=== PATIENT | male | born 1950 | race Caucasian/White ===

== ENCOUNTER → 2018-01-23 | Outpatient (CLI) | payer OTHER | LOC: BMCIMAGING 07:24 | PROVIDERS: ATTEND Physician Assistant | DX: I70.0 Atherosclerosis of aorta (principal); I77.9 Disorder of arteries and arterioles, unspecified; I25.10 Atherosclerotic heart disease of native coronary artery without angina pectoris; F17.200 Nicotine dependence, unspecified, uncomplicated ==

== ENCOUNTER 2018-07-02 05:59 | Day surgery (SDC) | payer OTHER ==
[2018-07-02] MEDS ORDERED: ceFAZolin 2 GM/DEXTROSE 100 ML IV ONE (06:08)
[2018-07-02] MEDS ORDERED: LR 1,000 ML IV ONE (06:52)
[2018-07-02] MEDS ORDERED: BUPIVACAINE 0.5% 30 ML SDV ONE (06:59)
[2018-07-02] MEDS ORDERED: ceFAZolin 1 GM/5 ML SYR ONE (07:00)
[2018-07-02] MEDS ORDERED: LIDOCAINE 1% 300 MG/30 ML SDV ONE (07:01)
--- NOTE | 2018-07-02 07:01 | PDHPUP ---
History & Physical Update H&P update statement: This history and physical update is based on an assessment of the patient which was completed after admission or registration (within 24 hours), but prior to the surgery/procedure. H&P update: H&P reviewed & patient examined
[2018-07-02] MEDS ORDERED: MIDAZOLAM 2 MG/2 ML VIAL ONE (07:15)
[2018-07-02] MEDS ORDERED: PROPOFOL/EMULSION 500 MG/50 ML BOTTLE IV ONE (07:16)
[2018-07-02] MEDS ORDERED: fentaNYL 100 MCG/2 ML INJ ONE (07:16)
--- NOTE | 2018-07-02 07:55 | PDANEPAE ---
ANE Past Medical History - Cardiovascular History Hx Hypertension: No Hx Arrhythmias: No Hx Chest Pain: No Hx Coronary Artery / Peripheral Vascular Disease: Yes Hx CHF / Valvular Disease: No Hx Palpitations: No Cardiovascular History Comment: hyperlipidemia. cad - Pulmonary History Hx COPD: No Hx Asthma/Reactive Airway Disease: No Hx Recent Upper Respiratory Infection: No Hx Oxygen in Use at Home: No Hx Sleep Apnea: No Sleep Apnea Screening Result - Last Documented: Negative - Neurologic History Hx Cerebrovascular Accident: No Hx Seizures: Yes Hx Dementia: No Neurologic History Comment: hx of seizures at 26 yo - Endocrine History Hx Diabetes: No - Renal History Hx Renal Disorders: No Renal History Comment: BLADDER BECOMES A ISSUES WHEN BACK IS FLARING UP. - Liver History Hx Hepatic Disorders: No - Neurological & Psychiatric Hx Hx Neurological and Psychiatric Disorders: No - Cancer History Hx Cancer: No - Congenital Disorder History Hx Congenital Disorders: No - GI History Hx Gastrointestinal Disorders: No - Other Health History Other Health History: wears reading glasses - Chronic Pain History Chronic Pain: Yes (bilateral knees, right shoulder, lower back) - Surgical History Prior Surgeries: 10/23/16 l3-4 lami and decompression with Rajpal. TONSILLECTOMY ANE Review of Systems Review of Systems: - Exercise capacity METS (RN): 4 METS ANE Patient History - Allergies Allergies/Adverse Reactions: simvastatin Allergy (Verified 07/02/18 06:37) Other-Enter Comments - Home Medications Home Medications: Dilantin 10/04/16 [Last Taken 07/01/18] Crestor 06/05/18 [Last Taken 06/28/18] Herbals/Supplements -Info Only 06/05/18 [Last Taken 06/28/18] - NPO status NPO Since - Liquids (Date): 07/02/18 NPO Since - Liquids (Time): 06:00 NPO Since - Solids (Date): 07/01/18 NPO Since - Solids (Time): 21:30 - Smoking Hx Smoking Status: Heavy smoker - Family Anes Hx Family Hx Anesthesia Complications: none ANE Labs/Vital Signs - Vital Signs Blood Pressure: 115/79 Heart Rate: 75 Respiratory Rate: 15 O2 Sat (%): 93 Height: 170.18 cm Weight: 83.007 kg ANE Physical Exam - Airway Mallampati Score: Class 2 - ASA Status ASA Status: II ANE Anesthesia Plan Total IV Anesthesia: Yes Urgent/Emergent Case: Luis Angel holley completed preop but documented later for safe timely pt care
[2018-07-02] MEDS ORDERED: ONDANSETRON 4 MG/2 ML VIAL IVP PRN (08:09)
[2018-07-02] MEDS ORDERED: LR 500 ML IV PRN (08:09)
[2018-07-02] MEDS ORDERED: NALOXONE HCL 0.4 MG/ML INJ IVP PRN (08:09)
[2018-07-02] MEDS ORDERED: fentaNYL 100 MCG/2 ML INJ IVP PRN (08:09)
--- NOTE | 2018-07-02 08:10 | POSTANESTH ---
Post Anesthetic Evaluation Cardiovascular Status: Normal, Stable Respiratory Status: Normal, Stable Level of Consciousness/Mental Status: Can Participate in Eval Pain Control: Adequate, Prn Tx Ordered Nausea/Vomiting Control: Adequate, Prn Tx Ordered Complications Possibly Related to Anesthesia: None Noted
[2018-07-02] MEDS ORDERED: OXYCODONE/APAP 5/325 TAB PO PRN (08:15)
--- NOTE | 2018-07-02 08:15 | POSTOPPROG ---
Post Op Note Date of Operation: 07/02/18 Surgeon: Shashi Scott Bench Mover: none Anesthesiologist: Jose Beckman MD Anesthesia: IV Sedation Pre-op Diagnosis: Exostosis, right first metatarsal Post-op Diagnosis: loose body, right first MTP Indication: pain Procedure: 1. cheilectomy, right first metatarsal 2. removal loose body, 1st MTP , righ Findings: significant cartilage loss dorsal 50% of 1st met head Inf/Abcess present in the surg proc area at time of surgery?: No Depth: Organ Space EBL: Minimal Total fluids administered: per anesth Complications: none
--- NOTE | 2018-07-02 09:49 | GOP ---
[f rep st] OPERATIVE REPORT DATE OF OPERATION: 07/02/2018 SURGEON: Shashi Scott DPM GLASS LOADING EQUIPMENT TENDER: None. ANESTHESIA: Local with monitored anesthesia care. PREOPERATIVE DIAGNOSIS: 1. Hallux rigidus, right foot. 2. Loose body 1st metatarsophalangeal joint, right foot. POSTOPERATIVE DIAGNOSIS: 1. Hallux rigidus, right foot. 2. Loose body 1st metatarsophalangeal joint, right foot. PROCEDURE PERFORMED: 1. Cheilectomy, 1st metatarsal, right foot. 2. Excision, removal of loose body 1st metatarsophalangeal joint, right foot. FINDINGS: ESTIMATED BLOOD LOSS: Scant. DESCRIPTION OF PROCEDURE: Under mild sedation, the patient was brought to the operating room, placed on the operating table in supine position. Following further IV sedation as well as infiltration of 2 g of IV Ancef the forefoot was blocked in a regional local anesthetic with 20 cc of 0.5% Marcaine plain. The foot was then scrubbed, prepped, and draped in the usual aseptic manner. An Esmarch band age was utilized to exsanguinate the patient's right foot and the tourniquet was inflated to 265 mmHg . Attention was then directed to the dorsal aspect of the patient's 1st metatarsophalangeal joint of the right foot where a 4 cm linear longitudinal incision was made in line and medial to the tendon o f extensor hallucis longus. The skin was deepened via sharp and blunt dissection care being taken to identify and retract all vital neural and vascular structures. All bleeders were ligated and cauter ized as necessary. The periosteal capsular incision was made in line with the skin incision. The st ructures were reflected medially and laterally thus exposing the head of the 1st metatarsal and base of the proximal phalanx of the right foot. At this time, the loose body was immediately identified a nd was the great majority of the dorsal base of the proximal phalanx of the right hallux. There did appear to be some chalky white substance within the capsule and synovial tissue indicative of a gouty type arthropathy. Dorsal and medial eminence of the 1st metatarsal were then removed with a sagitta l saw. A rongeur was used along with a barrel type bur to round off any sharp edges. The wound was flushed with copious amounts of sterile normal saline. The 2 cm x 3 cm AmnioFix amniotic tissue memb oscar was placed on top of the joint. The capsular tissue was closed over this with a 2-0 Vicryl. Th e subcutaneous tissues were closed with 3-0 Monocryl and the skin was closed with a running baseball- type suture of 4-0 Prolene. The wound was dressed with Xeroform and a sterile compressive dressing c onsisting of 4x4s and Sofia. An Maulik wrap was also applied. The tourniquet was dropped to 25 minutes and a prompt hyperemic response was noted to all digits of the right foot. The patient tolerated th e procedure and anesthesia well. He was transferred to the recovery room with vital signs stable, va scular status intact to all digits of the right foot. Following pre and postoperative monitoring, sam chambers will be discharged home with the following written and oral postop instructions. 1. Keep dressing clean, dry, intact. 2. Use boot at all times when ambulating. 3. Use caution while taking pain medication. 4. All followup questions and concerns should be directed toward [facility] at [phone]. PATHOLOGY: None. HEMOSTASIS: Pneumatic ankle tourniquet at 265 mmHg for 25 minutes. MATERIALS: I used a 2 cm x 3 cm AmnioFix amniotic tissue graft from [employer]. INJECTABLES: 20 cc of 0.5% Marcaine plain. COMPLICATIONS: None. INDICATIONS FOR PROCEDURE: The patient is an otherwise healthy 67-year-old gentleman who presented t o my office some year ago with right big toe joint pain. Initial x-rays were taken and a large osteo phyte was noticed on the dorsal aspect of the patient's 1st metatarsal of the right foot as well as a t the base of the proximal phalanx, right hallux. There was suspicion that there was a loose body wi thin the joint. The patient was given the risks, benefits, and alternatives to the procedure propose d and wishes to proceed with the procedure. Procedure in detail is as follows. /[id number]/MODL
[2018-07-02 10:20] VITALS: BP 118/76
== END 2018-07-02 10:13 | disposition home or self-care (01) ==
LOC: FSGY 05:59
PROVIDERS: ATTEND Podiatrist Foot & Ankle Surgery
PROC: 0SNM0ZZ Release Right Metatarsal-Phalangeal Joint, Open Approach (ICD-10-PCS; principal; 2018-07-02 07:15)
PROC: 0QBN0ZZ Excision of Right Metatarsal, Open Approach (ICD-10-PCS; principal; 2018-07-02 07:15)
DX: M20.21 Hallux rigidus, right foot (principal); M24.074 Loose body in right toe joint(s)
CPT/HCPCS: C9399; J0690; J2250; J2704; J3010

== ENCOUNTER → 2018-11-09 | Outpatient (CLI) | payer OTHER | LOC: BMCIMAGING 08:10 | PROVIDERS: ATTEND Physician Assistant | DX: R91.8 Other nonspecific abnormal finding of lung field (principal) ==

== ENCOUNTER → 2018-12-27 | Outpatient (CLI) | payer OTHER ==
[~2018-12-27] MED LIST: IOPAMIDOL (ISOVUE-300) 100 ML BTL ONE
== END ==
LOC: FIMAGING 14:21
PROVIDERS: ATTEND Physician Assistant
DX: R91.8 Other nonspecific abnormal finding of lung field (principal); R91.1 Solitary pulmonary nodule; Z87.891 Personal history of nicotine dependence
CPT/HCPCS: 71260; Q9967; 82565-PO

== ENCOUNTER → 2019-02-06 | Day surgery (SDC) | payer OTHER ==
[~2019-02-06] MED LIST changes: +ALTEPLASE 2 MG VIAL IVP PRN; +FLUMAZENIL 0.5 MG/5 ML MDV IVP ONE; +FLUMAZENIL 0.5 MG/5 ML MDV IVP PRN; +FUROSEMIDE 20 MG/2 ML VIAL ONE; +GLUCAGON HCL 1 MG VIAL IVP PRN; +HEPARIN 10,000 UNIT/10 ML MDV (1,000 UNIT/ML) IVP PRN; -IOPAMIDOL (ISOVUE-300) 100 ML BTL ONE; +LIDOCAINE 1% 300 MG/30 ML SDV ONE; +MEPERIDINE 25 MG/ML SYR IVP PRN; +MIDAZOLAM 2 MG/2 ML VIAL IVP PRN; +MIDAZOLAM 2 MG/2 ML VIAL ONE; +NALOXONE HCL 0.4 MG/ML INJ IVP PRN; +NALOXONE HCL 0.4 MG/ML INJ ONE; +NS 1,000 ML IV SCH; +ONDANSETRON 4 MG/2 ML VIAL IVP PRN; +PROTAMINE SULFATE 50 MG/5 ML VIAL IVP PRN; +fentaNYL 100 MCG/2 ML INJ IVP PRN; +fentaNYL 100 MCG/2 ML INJ ONE; +oxyCODONE IR 5 MG TAB PO ONE
[2019-02-06 11:02] LABS: PROTIME(PATIENT) 12.8 SEC (12.0-15.0)
[2019-02-06 16:14] VITALS: BP 117/71
== END | disposition home or self-care (01) ==
LOC: FIMAGING 10:05
PROVIDERS: ATTEND Internal Medicine Hematology & Oncology
PROC: 0BBG3ZX Excision of Left Upper Lung Lobe, Percutaneous Approach, Diagnostic (ICD-10-PCS; principal; 2019-02-06 12:30)
DX: C34.12 Malignant neoplasm of upper lobe, left bronchus or lung (principal)
CPT/HCPCS: J1940; J2250; J2310; J3010

== ENCOUNTER → 2019-02-19 | Outpatient (CLI) | payer OTHER ==
[~2019-02-19] MED LIST changes: -ALTEPLASE 2 MG VIAL IVP PRN; -FLUMAZENIL 0.5 MG/5 ML MDV IVP ONE; -FLUMAZENIL 0.5 MG/5 ML MDV IVP PRN; -FUROSEMIDE 20 MG/2 ML VIAL ONE; +GADOBUTROL 10 ML VIAL IVP ONE; -GLUCAGON HCL 1 MG VIAL IVP PRN; -HEPARIN 10,000 UNIT/10 ML MDV (1,000 UNIT/ML) IVP PRN; -LIDOCAINE 1% 300 MG/30 ML SDV ONE; -MEPERIDINE 25 MG/ML SYR IVP PRN; -MIDAZOLAM 2 MG/2 ML VIAL IVP PRN; -MIDAZOLAM 2 MG/2 ML VIAL ONE; -NALOXONE HCL 0.4 MG/ML INJ IVP PRN; -NALOXONE HCL 0.4 MG/ML INJ ONE; -NS 1,000 ML IV SCH; -ONDANSETRON 4 MG/2 ML VIAL IVP PRN; -PROTAMINE SULFATE 50 MG/5 ML VIAL IVP PRN; -fentaNYL 100 MCG/2 ML INJ IVP PRN; -fentaNYL 100 MCG/2 ML INJ ONE; -oxyCODONE IR 5 MG TAB PO ONE
== END ==
LOC: FIMAGING 06:26
PROVIDERS: ATTEND Surgery
DX: C34.12 Malignant neoplasm of upper lobe, left bronchus or lung (principal); R90.82 White matter disease, unspecified; F17.200 Nicotine dependence, unspecified, uncomplicated
CPT/HCPCS: 70553; A9585

== ENCOUNTER 2019-03-15 07:34 | Inpatient (IN) | payer OTHER ==
[2019-03-15] MEDS ORDERED: ceFAZolin 2 GM/DEXTROSE 100 ML IV ONE (07:43)
[2019-03-15] MEDS ORDERED: LR 1,000 ML IV ONE (07:43)
[2019-03-15] MEDS ORDERED: oxyCODONE IR 5 MG TAB PO PRN (08:40)
[2019-03-15] MEDS ORDERED: ALBUTEROL 3 ML DEYVIAL IH PRN (08:40)
[2019-03-15] MEDS ORDERED: PROMETHAZINE HCL 25 MG/ML INJ IVP PRN (08:40)
[2019-03-15] MEDS ORDERED: NALOXONE HCL 0.4 MG/ML INJ IVP PRN (08:40)
[2019-03-15] MEDS ORDERED: ONDANSETRON 4 MG/2 ML VIAL IVP PRN (08:40)
[2019-03-15] MEDS ORDERED: LR 500 ML IV PRN (08:40)
[2019-03-15] MEDS ORDERED: MIDAZOLAM 2 MG/2 ML VIAL IVP ONE (08:40)
[2019-03-15] MEDS ORDERED: ACETAMINOPHEN 500 MG TAB PO PRN (08:40)
--- NOTE | 2019-03-15 08:42 | PDANEPAE ---
ANE History of Present Illness L VATS + Mediastinoscopy ANE Past Medical History - Cardiovascular History Hx Hypertension: No Hx Arrhythmias: No Hx Chest Pain: No Hx Coronary Artery / Peripheral Vascular Disease: Yes Hx CHF / Valvular Disease: No Hx Palpitations: No Cardiovascular History Comment: hyperlipidemia. - Pulmonary History Hx COPD: No Hx Asthma/Reactive Airway Disease: No Hx Recent Upper Respiratory Infection: No Hx Oxygen in Use at Home: No Hx Sleep Apnea: No Sleep Apnea Screening Result - Last Documented: Negative Pulmonary History Comment: PNA - Neurologic History Hx Cerebrovascular Accident: No Hx Seizures: Yes Hx Dementia: No Neurologic History Comment: hx of seizures at 26 yo - Endocrine History Hx Diabetes: No - Renal History Hx Renal Disorders: No Renal History Comment: BLADDER BECOMES A ISSUES WHEN BACK IS FLARING UP. - Liver History Hx Hepatic Disorders: No - Neurological & Psychiatric Hx Hx Neurological and Psychiatric Disorders: No - Cancer History Hx Cancer: No Cancer History Comment: L LUNG - Congenital Disorder History Hx Congenital Disorders: No - GI History Hx Gastrointestinal Disorders: No - Other Health History Other Health History: wears reading glasses - Chronic Pain History Chronic Pain: No (bilateral knees, right shoulder, lower back) - Surgical History Prior Surgeries: 10/23/16 l3-4 lami and decompression with Rajpal. TONSILLECTOMY. Toe surgery - 2018 ANE Review of Systems Review of Systems: - Exercise capacity METS (RN): 5 METS ANE Patient History - Allergies Allergies/Adverse Reactions: simvastatin Allergy (Verified 02/06/19 10:51) Other-Enter Comments - Home Medications Home Medications: Dilantin 400 mg PO DAILY 10/04/16 [Last Taken 03/14/19 20:30] Crestor 06/05/18 [Last Taken 02/22/19] Herbals/Supplements -Info Only 06/05/18 [Last Taken 02/13/19] Aspirin 81mg (*) 81 mg PO DAILY 02/04/19 [Last Taken 02/22/19] Ezetimibe 10 mg PO HS 03/15/19 [Last Taken 03/14/19 20:30] - NPO status NPO Since - Liquids (Date): 03/15/19 NPO Since - Liquids (Time): 07:00 NPO Since - Solids (Date): 03/14/19 NPO Since - Solids (Time): 20:00 - Smoking Hx Smoking Status: Former smoker - Family Anes Hx Family Hx Anesthesia Complications: none ANE Labs/Vital Signs - Vital Signs Blood Pressure: 124/76 Heart Rate: 76 Respiratory Rate: 16 O2 Sat (%): 93 Height: 170.18 cm Weight: 83.915 kg ANE Physical Exam - Airway Neck exam: FROM Mallampati Score: Class 2 Mouth exam: normal dental/mouth exam - Pulmonary Pulmonary: clear to auscultation - Cardiovascular Cardiovascular: regular rate and rhythym - ASA Status ASA Status: III ANE Anesthesia Plan Anesthesia Plan: general endotracheal anesthesia Specialized Airway: double lumen tube
[2019-03-15] MEDS ORDERED: POLYMYXIN B SULFATE 500,000 UNIT/10 ML SYR IRR ONE (08:45)
[2019-03-15] MEDS ORDERED: BUPIVACAINE/EPI 0.25% 30 ML SDV ONE ×2 (08:45→11:19)
[2019-03-15] MEDS ORDERED: BACITRACIN 50,000 UNITS/10 ML SYR IRR ONE (08:46)
[2019-03-15] MEDS ORDERED: DEXAMETHASONE 10 MG/ML VIAL IVP ONE (08:54)
--- NOTE | 2019-03-15 08:54 | PDHPUP ---
History & Physical Update H&P update statement: This history and physical update is based on an assessment of the patient which was completed after admission or registration (within 24 hours), but prior to the surgery/procedure. H&P update: no change in patient's condition since H&P completed
[2019-03-15] MEDS ORDERED: DEXAMETHASONE 4 MG/ML VIAL ONE ×2 (08:58→08:59)
[2019-03-15] MEDS ORDERED: ONDANSETRON 4 MG/2 ML VIAL ONE ×2 (08:58→14:27)
[2019-03-15] MEDS ORDERED: PROPOFOL 200 MG/20 ML VIAL ONE ×3 (08:58→14:21)
[2019-03-15] MEDS ORDERED: ROCURONIUM 100 MG/10 ML VIAL ONE ×2 (08:59→10:19)
[2019-03-15] MEDS ORDERED: LIDOCAINE 2% 2 ML INJ ONE ×2 (09:00)
[2019-03-15] MEDS ORDERED: HYDROmorphONE/DILAUDID 2 MG/ML INJ ONE ×2 (09:01→11:26)
[2019-03-15] MEDS ORDERED: BUPIVACAINE 0.25% 270 ML in PUMP SET 1 EA NB SCH (11:45)
[2019-03-15] MEDS ORDERED: ROCURONIUM 50 MG/5 ML VIAL ONE ×2 (12:13→13:57)
[2019-03-15] MEDS ORDERED: ceFAZolin 1 GM VIAL ONE (12:49)
[2019-03-15] MEDS ORDERED: PHENYLEPHRINE HCL 100 MCG/ML SYR ONE (13:34)
--- NOTE | 2019-03-15 14:54 | POSTANESTH ---
Post Anesthetic Evaluation Cardiovascular Status: Normal, Stable, Other, See Comment Respiratory Status: Normal, Stable Level of Consciousness/Mental Status: Can Participate in Eval, Mildly Sleepy, Arousable Pain Control: Adequate, Prn Tx Ordered Nausea/Vomiting Control: Adequate, Prn Tx Ordered (Status Post 2L EBL, Transfused 2-units FFP & 2-units PRBC,)
[2019-03-15] MEDS ORDERED: METOCLOPRAMIDE 10 MG TAB PO PRN (15:04)
[2019-03-15] MEDS ORDERED: KETOROLAC 30 MG/1 ML SDV IVP PRN (15:04)
[2019-03-15] MEDS ORDERED: METOCLOPRAMIDE 10 MG/2 ML VIAL IVP PRN (15:04)
[2019-03-15] MEDS ORDERED: HYDROmorphONE/DILAUDID 1 MG/ML INJ ONE (15:13)
[2019-03-15] MEDS ORDERED: fentaNYL 100 MCG/2 ML INJ ONE (15:13)
--- NOTE | 2019-03-15 15:13 | POSTOPPROG ---
Post Op Note Date of Operation: 03/15/19 Surgeon: Darion Cai (, FACS) Coordinator Of Health Services: Qiana Jo PA-C Anesthesiologist: Yvan Martines DO Anesthesia: GET(General Endotracheal) Pre-op Diagnosis: left upper lobe lung cancer Post-op Diagnosis: same Procedure: 1. mediastinoscopy 2. VATS>open LULobectomy Inf/Abcess present in the surg proc area at time of surgery?: No EBL: Greater than 1000 (1500ml) Bowel Protocol: N/A Clean Closure Performed: N/A Drains: Other (#[address])
[2019-03-15] MEDS: fentaNYL 100 MCG/2 ML INJ IVP PRN ×2 (15:14→15:21)
[2019-03-15] MEDS: HYDROmorphONE/DILAUDID 1 MG/ML INJ IVP PRN ×2 (15:15→15:22)
[2019-03-15] MEDS ORDERED: D5W 1/2 NS W/ 20 KCl/L 1,000 ML IV SCH (15:15)
[2019-03-15 15:50] LABS: PLATELET COUNT 244 10^3/uL (150-400)
[2019-03-15] MEDS ORDERED: FUROSEMIDE 20 MG/2 ML VIAL ONE (15:52)
[2019-03-15] MEDS ORDERED: KETOROLAC 30 MG/1 ML SDV ONE (16:09)
--- NOTE | 2019-03-15 16:48 | GOP ---
[f rep st] OPERATIVE REPORT DATE OF OPERATION: SURGEON: Darion Cai MD FACILITIES CUSTODIAN: Qiana Jo PA-C ANESTHESIA: General endotracheal ANESTHESIOLOGIST: Yvan Martines DO PREOPERATIVE DIAGNOSIS: Left upper lobe adenocarcinoma. POSTOPERATIVE DIAGNOSIS: Left upper lobe adenocarcinoma. PROCEDURE PERFORMED: 1. Mediastinoscopy. 2. Video-assisted thoracic surgery converted to open left upper lobectomy. FINDINGS: Benign-appearing lymph nodes from the right and left upper paratracheal, right and left lo wer paratracheal, and carinal positions submitted for permanent section for mediastinoscopy. Anthrac otic-appearing lymph nodes in the aortopulmonary window excised and submitted for permanent section. Hilar lymph nodes excised and submitted for permanent section. Normal hilar anatomy with pulmonary veins and bronchus divided thoracoscopically. Troublesome bleeding from pulmonary artery branch to t he upper lobe requiring conversion to an open procedure for definitive repair and to avoid injury to the main pulmonary artery trunk. ESTIMATED BLOOD LOSS: 1500 mL. DESCRIPTION OF PROCEDURE: After informed consent was obtained, the patient was brought to the operat ing room and placed under general anesthesia. He was positioned supine. The chest was prepped and d raped in the usual fashion. Before proceeding, a time-out and identification of the patient was perf ormed. 0.25% Marcaine was used to infiltrate the suprasternal notch area. A transverse incision was made an d carried through skin and subcutaneous tissues. Dissection was carried down to the pretracheal fasc ia just below the inferior border of the thyroid gland. Hemostasis was secured with cautery and hemo clips. A video mediastinum scope was introduced and gently advanced into the upper mediastinum. Tomás nt dissection of the peritracheal tissues was performed, and right upper peritracheal nodes were retr ieved from the right and left sides and submitted for permanent section. Slipping the scope caudad t o the innominate artery, the left lower and right lower peritracheal nodes were harvested, again usin g blunt dissection and hemostasis, was secured with sparing use of cautery. The layla was identifie d, and the subcarinal lymph node was separately removed and submitted for permanent section. Hemosta sis appeared secure. It should be noted that the patient had a negative PET-CT preoperatively, and t his was to ensure adequate staging postoperatively. The mediastinum scope was withdrawn carefully observing for areas of hemostasis which appeared secure . The deep platysma layer was approximated with 2-0 Vicryl suture. Skin was closed with 4-0 Monocry l suture in subcuticular fashion followed by Dermabond. The patient was then reintubated with a doub le-lumen endotracheal tube and placed on a billy bag in right lateral decubitus position. The left ch est, shoulder, axilla were prepped and draped in the usual fashion. Before proceeding, a 2nd time-ou t was performed. Posterior axillary line, 8th intercostal space was infiltrated, incised transversel y, and an 8-Prydeinig thoracoscopic port placed bluntly. The lung was deflated, and a 30-degree scope w as introduced. Pleural space was visualized. Other than anthracosis of the lung, there was no secon katja evidence of malignancy in the chest. An additional 8 mm port was placed in the anterior 7th int ercostal space, anterior axillary line, and an access incision was made in the 3rd intercostal space just below the axilla transversely, and a small Rock wound protector was deployed here. This allow ed introduction of atraumatic instruments. The upper lobe was well from the lower lobe by the major fissure. The pleura was incised anteriorly with cautery, and dissection carried out around the branches of the superior pulmonary vein. 3 main branches were isolated. Dissection was carried out bluntly mobilizing each of the branches and encircling them with a vessel loop. This allowed th e pulmonary vein branches to be individually divided with firings of the Endo YOLANDA 35 stapler. After this had been completed, the pulmonary artery trunk and bronchus came into view. 2 hilar lymph nodes were dissected away from the bronchus freeing it up circumferentially and ultimately allowing us to pass a Mixter clamp behind the bronchus. A 12-Prydeinig red rubber Gonzalez catheter was passed around the bronchus for gentle traction, and an Endo-YOLANDA 45 stapler was brought in through the posterior por t site which had been enlarged to a 15 mm access port for stapling instrument placement. This allowe d the bronchus to be in nicely divided before completing the closure. The lower lobe was re-expanded to ensure no encroachment upon the lower lobe portion of the airway. After the bronchus was divided , the pulmonary artery presented posteriorly. There were 3 major branches and 2 smaller branches goi ng into the upper lobe and lingula. The first of these was encircled with a vessel loop and successf ully divided with an Endo-YOLANDA 35 stapler using a vascular load. After mobilizing the 2nd of the 3 ma in branches, stapler was passed around the trunk, fired, removed and deployed, and bleeding noted fro m the base of the staple line. It was not clear where this had come from, as the instrument was chelsie cristi, and no residual kelvin were left in the field. Nonetheless, this presented a troublesome probl em because it was bleeding in between the 2 trunks. After a failed attempt at suturing this with a 4 -0 Prolene suture, which resulted in increased bleeding, I elected to convert to an open procedure to avoid injury to the main pulmonary artery trunk which would have resulted in a total pneumonectomy. So converting the access incision to a thoracotomy incision involved removing the Rock wound prote ctor. The incision was extended anteriorly and posteriorly, and the mini thoracotomy was performed t hrough the serratus muscle and intercostal muscles preserving the pectoralis muscle anteriorly as wel l as the latissimus muscle posteriorly. This allowed access to the upper mediastinum, and a Satinsky clamp was placed under direct visualization securing the base of the 2 branching pulmonary arteries. After this had been secured, the chest was irrigated and inspected. The remaining branches of the pulmonary artery were ligated with 2-0 silk ligatures and/or hemoclipped and divided. This allowed t he bleeding from the base of the first 2 trunks to contend with, and I elected to perform closure wit h interrupted pledgeted sutures of 3-0 and 4-0 Prolene. After these had been placed and tied, the Sa tinsky clamp was removed. One additional bleeding point required an additional pledget suture, and s ubsequently hemostasis was secure. The main trunk of the pulmonary artery that was supplying the low er lobe was intact. The remainder of the lung specimen was attached only posteriorly by a small amou nt of pleura. After this was incised, the specimen was delivered from the field and submitted for pe rmanent section. The inferior pulmonary ligament was mobilized. No pathologic lymph nodes were note d there. One inferior pulmonary ligament node was submitted as a separate specimen along with the ao rtopulmonary window nodes which were submitted as a separate specimen. A 32-Prydeinig chest tube was br ought through the posterior axillary line port site and secured to the skin with 2-0 silk suture. Th e hilar structures were covered with Surgicel to prevent adhesions. The lower lobe was re-expanded. The 3rd and 4th ribs were reapproximated as follows: Soft tissues were cleared off the anterior elsa face of the 4th rib with cautery. A 2 mm bit was used to drill transcostal holes for placement of mckay bsequent thoracotomy suture placement. The chest was closed with interrupted #1 Ethibond sutures usi ng the Soha rib approximator. After these were tied, the rib approximator was removed from the fie ld. The serratus muscle was repaired with interrupted 2-0 Vicryl sutures. Deep subcutaneous tissues were closed with 2-0 Vicryl suture, and the skin was closed with 3-0 V-Loc suture. The anterior por t site was closed with 2-0 and 3-0 V-Loc suture in a similar fashion. Topical Dermabond was applied to the incision sites. ON-Q catheters had been tunneled from the posterior aspect of the wound and r eplaced into the intercostal space. These were secured to the skin with Dermabond and ultimately, Te gaderm for the chest tube dressing. The patient was returned to a supine position, extubated, and br ought to the recovery room in satisfactory condition. Needle, sponge, and instrument count were amisha ect. Estimated blood loss 1500 mL. TRANSFUSIONS: Patient received 2 units of packed red blood cells and 2 units of fresh frozen plasma. COMPLICATIONS: Bleeding from pulmonary artery branch. /[id number]/MODL
--- NOTE | 2019-03-15 17:08 | PDMN ---
Medical Necessity Medical necessity: [facility] IP only surgery; cpt 38072 VATS converted to open upper left lobectomy
[2019-03-15] MEDS: ceFAZolin 2 GM/DEXTROSE 100 ML IV SCH (18:29)
[2019-03-15] MEDS: FAMOTIDINE 20 MG/NACL 50 ML IV SCH (21:30)
[2019-03-15] MEDS: OXYCODONE/APAP 5/325 TAB PO PRN (21:30)
[2019-03-15] MEDS: PHENYTOIN SODIUM EXTENDED 100 MG CAP PO SCH (21:31)
[2019-03-15] MEDS: EZETIMIBE 10 MG TAB PO SCH (21:33)
[2019-03-15] MEDS: KETOROLAC 15 MG/1 ML SDV IVP PRN (21:37)
[2019-03-16] MEDS: ceFAZolin 2 GM/DEXTROSE 100 ML IV SCH (01:31)
[2019-03-16] MEDS: OXYCODONE/APAP 5/325 TAB PO PRN ×3 (01:32→08:34)
[2019-03-16] MEDS: KETOROLAC 15 MG/1 ML SDV IVP PRN (02:54)
[2019-03-16] MEDS: HYDROmorphONE/DILAUDID 1 MG/ML INJ IVP PRN ×2 (06:32→22:15)
[2019-03-16] MEDS: ENOXAPARIN 40 MG/0.4 ML SYR SC SCH (07:57)
[2019-03-16] MEDS: FAMOTIDINE 20 MG/NACL 50 ML IV SCH ×2 (07:57→20:48)
[2019-03-16] MEDS ORDERED: LACTULOSE 20 GM/30 ML UDCUP PO PRN (08:31)
[2019-03-16] MEDS ORDERED: MAGNESIUM HYDROXIDE 30 ML UDCUP PO PRN (08:31)
[2019-03-16] MEDS ORDERED: POLYETHYLENE GLYCOL 3350 17 GM PKT PO PRN (08:31)
[2019-03-16] MEDS ORDERED: BISACODYL 10 MG SUPP PR PRN (08:31)
--- NOTE | 2019-03-16 08:38 | SOAPPROG ---
SOAP Progress Note Assessment/Plan: Assessment: s/p VATS > open LULobectomy/mediastinoscopy blood loss anemia mild hyperglycemia Plan: increase activity CT to H20 seal advance diet discussed surgical findings and procedure in detail 03/16/19 08:36 Subjective: awake/alert, feeling weak pain with coughing/movement Objective: Vital Signs Temp Pulse Resp BP Pulse Ox 36.9 C 82 14 117/85 H 98 03/16/19 07:33 03/16/19 07:33 03/16/19 07:33 03/16/19 07:33 03/16/19 07:33 Laboratory Results 03/16/19 04:39 03/16/19 04:39 03/15/19 03/16/19 03/17/19 05:59 05:59 05:59 Intake Total 5900 Output Total 3802 Balance 2098 - Pending Discharge Pending Discharge Within 24 Hours: No Pending Discharge Within 48 Hours: No Physical Exam - Physical Exam General Appearance: alert, mild distress Respiratory: normal breath sounds, decreased breath sounds (left), pain on movement, other (CT without air leak, 60 ml output post op) Cardiac/Chest: regular rate, rhythm Abdomen: soft Male Genitalia: deferred Rectal: deferred Skin: warm/dry, pallor Extremities: non-tender Neuro/Psych: alert, normal mood/affect, oriented x 3 ICD10 Worksheet Patient Problems: Problems Problem Status Onset Lung cancer Acute - ICD10 Problem Qualifiers (1) Lung cancer
[2019-03-16] MEDS: oxyCODONE IR 5 MG TAB PO PRN ×3 (11:46→19:51)
[2019-03-16] MEDS: SENNOSIDES/DOCUSATE SODIUM TAB PO SCH ×2 (11:47→20:48)
[2019-03-16] MEDS: ACETAMINOPHEN 325 MG TAB PO PRN (13:44)
[2019-03-16] MEDS: IBUPROFEN 800 MG TAB PO SCH ×2 (15:55→20:48)
--- NOTE | 2019-03-16 16:17 | ASMTCMCOM ---
CM Note CM Note Notes: Chart reviewed for discharge planning purposes. 68 year old male admitted Monday for elective lobectomy and VATS procedure for known cancer diagnosis. Patient lives with . Needs to be determined at this point. CM to follow. Plan: TBD Date Signed: 03/16/2019 04:16 PM Electronically Signed By:Maite Flores RN
[2019-03-16] MEDS ORDERED: LORazepam 1 MG TAB PO ONE (20:45)
[2019-03-16] MEDS: PHENYTOIN SODIUM EXTENDED 100 MG CAP PO SCH (20:47)
[2019-03-16] MEDS: EZETIMIBE 10 MG TAB PO SCH (20:48)
[2019-03-17] MEDS: IBUPROFEN 800 MG TAB PO SCH ×3 (05:58→21:29)
[2019-03-17] MEDS: oxyCODONE IR 5 MG TAB PO PRN ×6 (05:59→21:56)
--- NOTE | 2019-03-17 06:59 | SOAPPROG ---
ARTHUR Progress Note Assessment/Plan: Assessment: s/p VATS > open LULobectomy/mediastinoscopy-path pending blood loss anemia Plan: increase activity/transfer to [facility] surg CT to H20 seal until output <100 ml/24 hours discussed surgical findings and procedure in detail 03/16/19 08:36 03/17/19 06:58 Subjective: intermittently having "trouble getting a deep breath" sitting up in chair, resting comfortably-no respiratory distress Objective: Vital Signs Temp Pulse Resp BP Pulse Ox 36.8 C 80 19 134/79 H 100 03/17/19 00:00 03/17/19 04:00 03/17/19 04:00 03/17/19 04:00 03/17/19 04:00 Laboratory Results 03/16/19 04:39 03/16/19 04:39 03/16/19 03/17/19 03/18/19 05:59 05:59 05:59 Intake Total 5900 1186 Output Total 3802 332 Balance 2098 854 - Pending Discharge Pending Discharge Within 24 Hours: No Pending Discharge Within 48 Hours: No Physical Exam - Physical Exam General Appearance: no apparent distress Respiratory: lungs clear, decreased breath sounds Cardiac/Chest: regular rate, rhythm Neuro/Psych: normal mood/affect ICD10 Worksheet Patient Problems: Problems Problem Status Onset Lung cancer Acute - ICD10 Problem Qualifiers (1) Lung cancer
[2019-03-17] MEDS: ENOXAPARIN 40 MG/0.4 ML SYR SC SCH (08:35)
[2019-03-17] MEDS: SENNOSIDES/DOCUSATE SODIUM TAB PO SCH ×2 (08:35→21:29)
[2019-03-17] MEDS: FAMOTIDINE 20 MG TAB PO SCH ×2 (08:35→21:29)
[2019-03-17] MEDS ORDERED: FAMOTIDINE 20 MG/NACL 50 ML IV SCH (09:00)
[2019-03-17] MEDS: ACETAMINOPHEN 325 MG TAB PO PRN ×2 (10:04→17:24)
--- NOTE | 2019-03-17 15:26 | ASMTCMCOM ---
CM Note CM Note Notes: Patient still has chest tube in place after lobectomy and VATS procedure, currently no therapy notes. CM to follow for needs at this point. Plan: DC plan unclear at this time. Date Signed: 03/17/2019 03:25 PM Electronically Signed By:Maite Flores RN
[2019-03-17] MEDS: guaiFENesin 600 MG TAB.ER PO SCH ×2 (17:24→19:11)
[2019-03-17] MEDS: PHENYTOIN SODIUM EXTENDED 100 MG CAP PO SCH (21:28)
[2019-03-17] MEDS: EZETIMIBE 10 MG TAB PO SCH (21:31)
[2019-03-18] MEDS: oxyCODONE IR 5 MG TAB PO PRN ×5 (04:42→19:51)
[2019-03-18 05:06] LABS: PLATELET COUNT 181 10^3/uL (150-400)
[2019-03-18] MEDS: IBUPROFEN 800 MG TAB PO SCH ×3 (06:25→22:26)
--- NOTE | 2019-03-18 06:45 | SOAPPROG ---
SOAP Progress Note Assessment/Plan: Assessment: s/p VATS > open LULobectomy/mediastinoscopy-path pending blood loss anemia post op pain/congestion related to eating Plan: speech therapy consult CT to H20 seal until output <100 ml/24 hours-anticipate output should be down enough to pull CT tomorrow replace On Q bulb with .25% bupivicaine discussed surgical findings and procedure in detail 03/16/19 08:36 03/17/19 06:58 03/18/19 06:41 Subjective: c/o incisional pain congestion after eating Objective: Vital Signs Temp Pulse Resp BP Pulse Ox 36.6 C 78 16 117/71 95 03/18/19 04:36 03/18/19 04:36 03/18/19 04:36 03/18/19 04:36 03/18/19 04:36 Laboratory Results 03/18/19 04:30 03/16/19 04:39 03/17/19 03/18/19 03/19/19 05:59 05:59 05:59 Intake Total 1186 450 Output Total 332 540 Balance 854 -90 - Pending Discharge Pending Discharge Within 24 Hours: No Pending Discharge Within 48 Hours: Yes Pending Discharge Date: 03/20/19 Pending Discharge Time: 11:00 Physical Exam - Physical Exam General Appearance: mild distress Respiratory: lungs clear, decreased breath sounds, pain on movement, other (CT output 175 ml x 24 hr/no air leak) Cardiac/Chest: regular rate, rhythm ICD10 Worksheet Patient Problems: Problems Problem Status Onset Lung cancer Acute - ICD10 Problem Qualifiers (1) Lung cancer
[2019-03-18] MEDS ORDERED: PUMP SET NB SCH (07:00)
[2019-03-18] MEDS ORDERED: BUPIVACAINE 0.25% NB SCH (07:00)
[2019-03-18] MEDS: FAMOTIDINE 20 MG TAB PO SCH (09:03)
[2019-03-18] MEDS: guaiFENesin 600 MG TAB.ER PO SCH ×2 (09:05→19:54)
[2019-03-18] MEDS: SENNOSIDES/DOCUSATE SODIUM TAB PO SCH (09:09)
[2019-03-18] MEDS: ENOXAPARIN 40 MG/0.4 ML SYR SC SCH (09:09)
[2019-03-18] MEDS: LORazepam 1 MG TAB PO PRN ×3 (11:03→19:51)
[2019-03-18] MEDS: PHENYTOIN SODIUM EXTENDED 100 MG CAP PO SCH (22:24)
[2019-03-19] MEDS: oxyCODONE IR 5 MG TAB PO PRN ×2 (00:16→04:55)
[2019-03-19] MEDS: FAMOTIDINE 20 MG TAB PO SCH ×3 (02:08→21:29)
[2019-03-19] MEDS: EZETIMIBE 10 MG TAB PO SCH ×2 (02:08→21:28)
[2019-03-19] MEDS: SENNOSIDES/DOCUSATE SODIUM TAB PO SCH ×3 (02:09→21:30)
[2019-03-19] MEDS: IBUPROFEN 800 MG TAB PO SCH ×3 (04:55→21:33)
--- NOTE | 2019-03-19 08:45 | SOAPPROG ---
SOAP Progress Note Assessment/Plan: Assessment: s/p VATS > open LULobectomy/mediastinoscopy-path pending blood loss anemia not requiring supplemental O2 Plan: discussed pain meds/activity CT out, CXR anticipate discharge tomorrow discussed surgical findings and procedure in detail03/19/19 08:42 Subjective: awake/incisional pain improved breathing Objective: Vital Signs Temp Pulse Resp BP Pulse Ox 36.9 C 82 18 115/66 100 03/19/19 04:00 03/19/19 04:00 03/19/19 04:00 03/19/19 04:00 03/19/19 04:00 Laboratory Results 03/18/19 04:30 03/16/19 04:39 03/18/19 03/19/19 03/20/19 05:59 05:59 05:59 Intake Total 450 1050 Output Total 540 100 Balance -90 950 - Pending Discharge Pending Discharge Within 24 Hours: Yes Pending Discharge Date: 03/20/19 Pending Discharge Time: 11:00 Physical Exam - Physical Exam General Appearance: no apparent distress Neck: full range of motion Respiratory: lungs clear, decreased breath sounds Cardiac/Chest: regular rate, rhythm Abdomen: non-tender, soft Male Genitalia: deferred Rectal: deferred Neuro/Psych: cognition abnormalities (mild confusion/) ICD10 Worksheet Patient Problems: Problems Problem Status Onset Lung cancer Acute - ICD10 Problem Qualifiers (1) Lung cancer
[2019-03-19] MEDS: ENOXAPARIN 40 MG/0.4 ML SYR SC SCH (09:21)
[2019-03-19] MEDS: guaiFENesin 600 MG TAB.ER PO SCH ×2 (09:21→21:28)
[2019-03-19] MEDS: ACETAMINOPHEN 500 MG TAB PO SCH ×2 (13:50→21:27)
--- NOTE | 2019-03-19 16:22 | ASMTCMCOM ---
CM Note CM Note Notes: PT states patient is cleared for home. Patient to discharge independently when medically ready. CM available if d/c needs arise. Date Signed: 03/19/2019 04:21 PM Electronically Signed By:Codi Armijo LCSW
[2019-03-19] MEDS: PHENYTOIN SODIUM EXTENDED 100 MG CAP PO SCH (21:28)
[2019-03-20] MEDS: ACETAMINOPHEN 500 MG TAB PO SCH (06:28)
[2019-03-20] MEDS: IBUPROFEN 800 MG TAB PO SCH (06:29)
[2019-03-20 07:15] VITALS: BP 104/68
--- NOTE | 2019-03-20 07:56 | PDDCSUM ---
Discharge Summary Discharge Summary: #[id number] Courtney Cai MD, FACS
--- NOTE | 2019-03-20 08:27 | GDS ---
[f rep st] DISCHARGE SUMMARY DISCHARGE DIAGNOSES: 1. Left upper lobe lung cancer. 2. History of seizure disorder. 3. Acute blood loss anemia, intraoperative. PROCEDURE PERFORMED: 03/15/2019, VATS converted to open left upper lobectomy, mediastinoscopy and me diastinal lymph node dissection. HOSPITAL COURSE: For the details of admission history and physical, please see dictated summary. Br carmen, the patient is a 68-year-old male with a biopsy-proven left upper lobe adenocarcinoma. Preope rative PET scanning was negative. He was admitted for staging mediastinoscopy and VATS left upper lo bectomy. This was performed on the date of admission. The mediastinoscopy was uneventful. The jesus rity of the procedures performed via VATS and during the final step of securing the pulmonary arterie s, troublesome bleeding required conversion to an open procedure. Blood loss intraoperatively was es timated at 1500 mL. He received 2 units of packed red blood cells, 2 units of FFP intraoperatively a nd was stable thereafter, not requiring additional transfusions. POSTOPERATIVE COURSE: The patient was admitted to the intensive care unit as a step-down patient. Tonya e had a chest tube in place with On-Q catheters infusing bupivacaine. Postoperative pain was also co ntrolled with oral Oxy IR and p.r.n. Dilaudid, he required Ativan for anxiety. He was weaned from ox ygen, had a persistent cough with mucus production, which was improved with guaifenesin. He was advan beth in his diet. His chest tube was removed on the day prior to discharge and this postprocedural ch est x-ray showed no pneumothorax or pleural effusion. Final pathology report is pending at the time of dictation. The patient was discharged home postop day 5. DISCHARGE MEDICATIONS: Tylenol 1000 mg p.o. q.8 hours, guaifenesin 600 mg p.o. twice daily #30, ibup rofen 800 mg p.o. three times daily #30, lorazepam 1 mg p.o. q.4 hours p.r.n. anxiety #10, milk of ma gnesia 30 mL p.o. daily p.r.n., Dilantin 400 mg p.o. at bedtime, Senokot S 1 p.o. twice daily and p.r .n. MiraLAX 17 g p.o. daily. The patient will also continue aspirin 81 mg p.o. daily. CONDITION AT TIME OF DISCHARGE: Improved. FOLLOWUP: Arranged in my office in approximately 1 week. O2 saturation on room air at the time of di scharwily was 95-98% at rest. He did not require supplemental oxygen for the past 24 hours. Copy requested to: Jamari Mi [facility] /[id number]/MODL
== END 2019-03-20 09:31 | disposition home or self-care (01) | DRG 164 ==
LOC: F1N 07:34 → F2N 14:17 → F1N 03-17 09:55
PROVIDERS: ADMIT Surgery; ATTEND Surgery
PROC: 0BTG0ZZ Resection of Left Upper Lung Lobe, Open Approach (ICD-10-PCS; principal; 2019-03-15 09:00)
PROC: 30233R1 Transfusion of Nonautologous Platelets into Peripheral Vein, Percutaneous Approach (ICD-10-PCS; 2019-03-15 09:00)
PROC: 30233N1 Transfusion of Nonautologous Red Blood Cells into Peripheral Vein, Percutaneous Approach (ICD-10-PCS; 2019-03-15 09:00)
PROC: 30233K1 Transfusion of Nonautologous Frozen Plasma into Peripheral Vein, Percutaneous Approach (ICD-10-PCS; 2019-03-15 09:00)
DX: C34.12 Malignant neoplasm of upper lobe, left bronchus or lung (principal); D62 Acute posthemorrhagic anemia; Z53.32 Thoracoscopic surgical procedure converted to open procedure; G40.909 Epilepsy, unspecified, not intractable, without status epilepticus; I25.10 Atherosclerotic heart disease of native coronary artery without angina pectoris; E78.5 Hyperlipidemia, unspecified; I77.9 Disorder of arteries and arterioles, unspecified; Z72.0 Tobacco use
CPT/HCPCS: 92610-GN; 97161-GP; 97166-GO; J0690; J1100; J1170; J1650; J1885; J1940; J2250; J2370; J2405; J2704; J3010; P9016; P9017; P9035; P9073